=== PATIENT | female | born 1995 | race Caucasian/White ===

== ENCOUNTER 2017-04-02 19:59 | Emergency (ER) | payer SELFPAY ==
[2017-04-02] MEDS ORDERED: ONDANSETRON HCL IV 4 MG/2 ML VIAL IV ONE (20:21)
[2017-04-02] MEDS ORDERED: 0.9 % SODIUM CHLORIDE 1,000 ML BAG IV ONE ×2 (20:21→21:13)
[2017-04-02] MEDS ORDERED: ACETAMINOPHEN 325 MG TAB PO ONE (20:27)
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
[2017-04-02 20:53] LABS: BASO % 0.1 % (0-6); EOS % 0.1 % (0-6); HEMATOCRIT 40.3 % (35.0-47.0); HEMOGLOBIN 13.8 gm/dl (11.6-16.0); LYMPH % 3.8 % (16-45); MEAN CELL VOLUME 84.7 fl (81-97); MEAN CORPUSCULAR HGB CONC 34.2 g/dl (32-36); MEAN PLATELET VOLUME 10.7 fl (7.4-10.4); MONO % 5.2 % (0-9); PLATELET COUNT 322 K/uL (130-400); RED BLOOD COUNT 4.76 M/uL (3.80-5.40); RED CELL DISTRIBUTION WIDTH 12.6 % (11.5-14.5)
[2017-04-02 20:59] LABS: ALB/GLOB RATIO 1.4 (1.1-1.8); ALBUMIN 4.3 g/dL (4.0-5.0); ALKALINE PHOSPHATASE 68 U/L (35-104); ALT/SGPT 15 U/L (<33); AST/SGOT 17 U/L (10.0-35.0); BLOOD UREA NITROGEN 13.3 mg/dL (12.6-42.6); CREATININE 0.7 mg/dL (0.5-0.9); EST GLOMERULAR FILTRATION RATE > 60 mL/min; GLUCOSE,RANDOM 109 mg/dL (74-109); LIPASE 14 U/L (13-60); TOTAL PROTEIN 7.3 g/dL (6.6-8.7)
[2017-04-02 21:16] LABS: URINE APPEARANCE CLEAR; URINE BILIRUBIN NEGATIVE (NEGATIVE); URINE BLOOD LARGE (NEGATIVE); URINE COLOR YELLOW; URINE GLUCOSE (UA) NEGATIVE (NEGATIVE); URINE KETONE TRACE (NEGATIVE); URINE LEUKOCYTE ESTERASE TRACE (NEGATIVE); URINE NITRITE NEGATIVE (NEGATIVE); URINE PROTEIN NEGATIVE (NEGATIVE)
[2017-04-02 21:20] LABS: HCG,QUALITATIVE URINE NEGATIVE (NEGATIVE)
[2017-04-02 21:28] LABS: URINE BACTERIA 2+; URINE RBC 21 - 35 (NONE SEEN)
[2017-04-02] MEDS ORDERED: KETOROLAC 30 MG/ML VIAL IVP ONE (21:37)
[2017-04-02] MEDS ORDERED: CIPROFLOXACIN HCL 500 MG TABLET PO ONE (21:56)
== END 2017-04-02 22:17 | disposition home or self-care (01) ==
LOC: ER 19:59
DX: K52.9 Noninfective gastroenteritis and colitis, unspecified (principal); R11.2 Nausea with vomiting, unspecified; R53.1 Weakness; R10.9 Unspecified abdominal pain; R51 Headache
CPT/HCPCS: 99284 ×2; 96374; 96375; 96361; 83690; 80053; 81001; 81025; 85027; J1885; J2405; J7030

== ENCOUNTER 2017-04-08 15:55 | Emergency (ER) | payer SELFPAY ==
[2017-04-08] MEDS ORDERED: ONDANSETRON HCL IV 4 MG/2 ML VIAL IV ONE (16:08)
[2017-04-08] MEDS ORDERED: 0.9 % SODIUM CHLORIDE 1,000 ML BAG IV ONE ×2 (16:08→16:40)
--- NOTE | 2017-04-08 16:14 | Emergency Department Record ---
History of Present Illness - General Chief complaint: Nausea, Vomiting, Diarrhea Stated complaint: VOMITTING,NAUSEA,ELEVATED TEMP Time Seen by Provider: 04/08/17 16:07 Source: Patient Mode of Arrival: Ambulatory Limitations: No limitations - History of Present Illness Initial comments: 21 yo female presents with nausea and vomiting since this morning. The onset was about 11am. No fevers or chills. No diarrhea. She has some cramps with vomiting but then the discomfort resolves. NO history of abdominal surgery. No dysuria. No cough, chest pain, abdominal pain, back pain. She reports she is normally very healthy. She has been having nausea for about a month since starting control. The vomiting first occurred in the last one week. She was seen in the ED at that time with similar symptoms. She is concerned that the month of nausea is related to her control pills. MD complaint: Nausea, Vomiting Onset/Timin -: Hour(s) Description of Vomiting: Bilious Associated Abdominal Pain: Yes Location: Diffuse Radiation: None Severity: Mild Severity scale (1-10): 3 Quality: Cramping Consistency: Intermittent Improves with: None Worsens with: None Associated Symptoms: Nausea/vomiting - Related Data Previous Rx's Medication Instructions Recorded Ciprofloxacin HCl [Cipro] 500 mg PO Q12HR #10 tablet 04/02/17 Ondansetron [Zofran Odt] 4 mg SL .Q4-6H PRN #12 tab.rapdis 04/02/17 Promethazine HCl [Phenergan] 25 mg PO Q8H #15 tablet 04/08/17 Allergies Allergy/AdvReac Type Severity Reaction Status Date / Time codeine Allergy Intermediate VOMITING Verified 04/08/17 16:05 Travel Screening - Travel/Exposure Within Last 30 Days Have you traveled within the last 30 days?: No Review of Systems Constitutional: Denies: Chills, Fever, Weakness Eyes: Denies: Eye discharge, Eye pain, Photophobia ENT: Denies: Congestion, Throat pain Respiratory: Denies: Cough, Dyspnea, Hemoptysis, Stridor, Wheezes Cardiovascular: Denies: Chest pain, Palpitations, Syncope Endocrine: Denies: Fatigue Gastrointestinal: Reports: As per HPI, Nausea, Vomiting. Denies: Abdominal pain , Diarrhea Genitourinary: Denies: Dyspareunia, Dysuria, Urgency Musculoskeletal: Denies: Arthralgia, Back pain, Myalgia, Neck pain Skin: Denies: Bruising, Change in color, Rash Neurological: Denies: Abnormal gait, Headache, Numbness, Paresthesias, Tingling , Vertigo, Weakness Psychiatric: Denies: Anxiety Hematological/Lymphatic: Denies: Blood Clots, Easy bleeding, Easy bruising, Swollen glands Past Medical History - SOCIAL HISTORY Smoking Status: Never smoker Alcohol Use: None Drug Use: None - RESPIRATORY Hx Respiratory Disorders: No - CARDIOVASCULAR Hx Cardio Disorders: No - NEURO Hx Neuro Disorders: No - GI Hx GI Disorders: No - Hx Genitourinary Disorders: No - ENDOCRINE Hx Endocrine Disorders: No - MUSCULOSKELETAL Hx Musculoskeletal Disorders: No - PSYCH Hx Psych Problems: No - HEMATOLOGY/ONCOLOGY Hx Hematology/Oncology Disorders: No Family Medical History Any Significant Family History?: Yes Family Hx Comment (NOT TO BE USED IN PLACE OF ITEMS BELOW): Mother-hypoglycemic , anemic Physical Exam - General General Appearance: Alert, Oriented x3, Cooperative, No acute distress Limitations: No limitations - Head Head exam: Normal inspection - Eye Eye exam: Normal appearance. negative: Conjunctival injection, Periorbital swelling, Scleral icterus - ENT ENT exam: Normal exam, Mucous membranes moist Ear exam: Normal external inspection Nasal Exam: Normal inspection Mouth exam: Normal external inspection - Neck Neck exam: Normal inspection, Full ROM. negative: Lymphadenopathy - Respiratory Respiratory exam: Normal lung sounds bilaterally. negative: Respiratory distress - Cardiovascular Cardiovascular Exam: Regular rate, Normal rhythm, Normal heart sounds Peripheral Pulses: 2+: Radial (R), Radial (L) - GI/Abdominal GI/Abdominal exam: Soft. negative: Distended, Guarding, Hernia, Rebound, Rigid , Tenderness - Rectal Rectal exam: Deferred - exam: Deferred - Extremities Extremities exam: Normal inspection, Full ROM, Normal capillary refill. negative: Tenderness - Back Back exam: Reports: Normal inspection - Neurological Neurological exam: Alert, Normal gait, Oriented X3 - Psychiatric Psychiatric exam: Normal affect, Normal mood. negative: Agitated, Anxious - Skin Skin exam: Dry, Intact, Normal color, Warm Course Vital Signs 04/08/17 16:01 Temperature 97.8 F Pulse Rate 97 H Respiratory 18 Rate Blood Pressure 121/95 Pulse Ox 97 - Reevaluation(s) Reevaluation #1: The labs were reviewed CBC with WBC of 17 04/08/17 16:39 No acute changes of the CMP or Lipase 04/08/17 16:39 The patient is starting to feel better The second liter is starting. 04/08/17 17:21 No nausea or pain. 04/08/17 17:32 04/08/17 18:24 On recheck the nausea is well controlled The abdomen on examination is very soft, non tender to palpation and very soft to deep palpation The EMR was reviewed from the prior visit The urine culture was negative for any growth. 04/08/17 18:42 I recommend abdominal US as well given her recurrent symptoms There is an opening at 7am She is to be NPO after midnight and return for a recheck and US Medical Decision Making - Lab Data Result diagrams: 04/08/17 16:10 04/08/17 16:10 Disposition Disposition: Discharge Clinical Impression: Nausea and vomiting Qualifiers: Vomiting type: unspecified Vomiting Intractability: non-intractable Qualified Code(s): R11.2 - Nausea with vomiting, unspecified Disposition: Home, Self-Care Condition: (1) Good Instructions: Acute Nausea and Vomiting (ED) Additional Instructions: Call the family practice clinic to be seen in follow up Return if fever, return of nausea or vomiting or any other new concerns Return at 7am for an US of the abdomen Do not eat or drink after midnight. Prescriptions: Promethazine HCl [Phenergan] 25 mg PO Q8H #15 tablet Forms: Patient Portal Access Time of Disposition: 18:41 Quality - Quality Measures Quality Measures: N/A - Blood Pressure Screening Does Patient Have Any of the Following: No Blood Pressure Classification: Hypertensive Reading Systolic Measurement: 121 Diastolic Measurement: 95 Screening for High Blood Pressure: < Pre-Hypertensive BP, F/U Documented > [ G8950] Pre-Hypertensive Follow-up Interventions: Referral to alternative/primary care provider.
[2017-04-08 16:18] LABS: HEMATOCRIT 42.1 % (35.0-47.0); HEMOGLOBIN 14.3 gm/dl (11.6-16.0); MEAN CELL VOLUME 84.7 fl (81-97); MEAN CORPUSCULAR HEMOGLOBIN 28.8 pg (27-33); MEAN PLATELET VOLUME 9.8 fl (7.4-10.4); PLATELET COUNT 451 K/uL (130-400); RED BLOOD COUNT 4.97 M/uL (3.80-5.40); RED CELL DISTRIBUTION WIDTH 12.7 % (11.5-14.5); WHITE BLOOD COUNT W/O DIFF 17.5 K/uL (4.2-12.2)
[2017-04-08 16:29] LABS: PLATELET ESTIMATE NORMAL (NORMAL)
[2017-04-08 16:34] LABS: ALB/GLOB RATIO 1.3 (1.1-1.8); ALBUMIN 4.2 g/dL (4.0-5.0); ALKALINE PHOSPHATASE 87 U/L (35-104); ALT/SGPT 18 U/L (<33); AST/SGOT 14 U/L (10.0-35.0); BLOOD UREA NITROGEN 27.8 mg/dL (12.6-42.6); CREATININE 0.7 mg/dL (0.5-0.9); EST GLOMERULAR FILTRATION RATE > 60 mL/min; GLUCOSE,RANDOM 110 mg/dL (74-109); LIPASE 12 U/L (13-60); TOTAL PROTEIN 7.5 g/dL (6.6-8.7)
[2017-04-08 17:43] LABS: URINE APPEARANCE CLEAR; URINE BILIRUBIN NEGATIVE (NEGATIVE); URINE BLOOD TRACE-I (NEGATIVE); URINE COLOR YELLOW; URINE GLUCOSE (UA) NEGATIVE (NEGATIVE); URINE KETONE NEGATIVE (NEGATIVE); URINE LEUKOCYTE ESTERASE NEGATIVE (NEGATIVE); URINE NITRITE NEGATIVE (NEGATIVE); URINE PROTEIN NEGATIVE (NEGATIVE); URINE UROBILINOGEN 0.2 E.U./dL (0.20 - 1.00)
[2017-04-08 17:49] LABS: HCG,QUALITATIVE URINE NEGATIVE (NEGATIVE); URINE WBC NONE SEEN (0-2/hpf)
== END 2017-04-08 19:05 | disposition home or self-care (01) ==
LOC: ER 15:55
DX: R11.2 Nausea with vomiting, unspecified (principal); R19.7 Diarrhea, unspecified
CPT/HCPCS: 99284 ×2; 96374; 96361; 83690; 80053; 81001; 81025; 85027; J2405; J7030

== ENCOUNTER 2017-04-09 07:09 | Emergency (ER) | payer SELFPAY ==
[2017-04-09] MEDS ORDERED: 0.9 % SODIUM CHLORIDE 1,000 ML BAG IV ONE (07:18)
[2017-04-09 07:36] LABS: HEMATOCRIT 37.5 % (35.0-47.0); HEMOGLOBIN 12.6 gm/dl (11.6-16.0); MEAN CORPUSCULAR HEMOGLOBIN 28.9 pg (27-33); MEAN CORPUSCULAR HGB CONC 33.6 g/dl (32-36); MEAN PLATELET VOLUME 9.7 fl (7.4-10.4); PLATELET COUNT 414 K/uL (130-400); RED BLOOD COUNT 4.36 M/uL (3.80-5.40); RED CELL DISTRIBUTION WIDTH 12.6 % (11.5-14.5); WHITE BLOOD COUNT W/O DIFF 19.2 K/uL (4.2-12.2)
--- NOTE | 2017-04-09 07:52 | Emergency Department Record ---
History of Present Illness - General Chief Complaint: Recheck - Other Stated Complaint: here for ultrasound Time Seen by Provider: 04/09/17 07:18 Source: Patient, RN notes reviewed - History of Present Illness Initial Comments: patient seen twice in our ED and initial thought to be viral pharyngitis and than yesterday afternoon she was vomiting excessively and ED physician concerned about her GB and wanted her to return for and abd US. Patient states no vomiting since yesterday. Patient here with her mom. No abdominal pain on palpation. No diarrhea. No dysuria. Patient had a negative preg test on 2016 and 04/08/2017. WBC elevated last two visits in ED. urine culture neg. Patient is feeling better today and is hungry and she has an appointment with Dr Ronquillo today at 11 am and that is to discuss the control pills. Patient took 4 days of cipro but that made her nauseated and she stopped on Friday. urine culture neg for UTI Onset/Timin -: Week(s) Initial Visit For: Other Returns Today for: Other Symptoms Since Prior Visit: No new symptoms Associated Symptoms: Nausea Treatments Prior to Arrival: Other medications - Related Data Previous Rx's Medication Instructions Recorded Ciprofloxacin HCl [Cipro] 500 mg PO Q12HR #10 tablet 04/02/17 Ondansetron [Zofran Odt] 4 mg SL .Q4-6H PRN #12 tab.rapdis 04/02/17 Promethazine HCl [Phenergan] 25 mg PO Q8H #15 tablet 04/08/17 Allergies Allergy/AdvReac Type Severity Reaction Status Date / Time codeine Allergy Intermediate VOMITING Verified 04/09/17 07:16 Travel Screening - Travel/Exposure Within Last 30 Days Have you traveled within the last 30 days?: No - Travel/Exposure Within Last Year Have you traveled outside the [place] in the last year?: No - Additonal Travel Details Have you been exposed to anyone with a communicable illness?: No - Travel Symptoms Symptom Screening: None Review of Systems Reviewed: No additional complaints except as noted below Constitutional: Reports: As per HPI. Denies: Chills, Fever, Malaise, Night sweats, Weakness, Weight change Eyes: Reports: As per HPI. Denies: Eye discharge, Eye pain, Photophobia, Vision change ENT: Reports: As per HPI. Denies: Congestion, Dental pain, Ear pain, Epistaxis , Hearing loss, Throat pain Respiratory: Reports: As per HPI. Denies: Cough, Dyspnea, Hemoptysis, Stridor, Wheezes Cardiovascular: Reports: As per HPI. Denies: Arrhythmia, Chest pain, Dyspnea on exertion, Edema, Murmurs, Orthopnea, Palpitations, Paroxysmal nocturnal dyspnea, Rheumatic Fever, Syncope Endocrine: Reports: As per HPI. Denies: Fatigue, Heat or cold intolerance, Polydipsia, Polyuria Gastrointestinal: Reports: As per HPI. Denies: Abdominal pain, Constipation, Diarrhea, Hematemesis, Hematochezia, Melena, Nausea, Vomiting Genitourinary: Reports: As per HPI. Denies: Abnormal menses, Discharge, Dyspareunia, Dysuria, Frequency, Hematuria, Incontinence, Retention, Urgency Musculoskeletal: Reports: As per HPI. Denies: Arthralgia, Back pain, Gout, Joint swelling, Myalgia, Neck pain Skin: Reports: As per HPI. Denies: Bruising, Change in color, Change in hair/ nails, Lesions, Pruritus, Rash Neurological: Reports: As per HPI. Denies: Abnormal gait, Confusion, Headache, Numbness, Paresthesias, Seizure, Tingling, Tremors, Vertigo, Weakness Psychiatric: Reports: As per HPI. Denies: Anxiety, Auditory hallucinations, Depression, Homicidal thoughts, Suicidal thoughts, Visual hallucinations Hematological/Lymphatic: Reports: As per HPI. Denies: Anemia, Blood Clots, Easy bleeding, Easy bruising, Swollen glands Past Medical History - SOCIAL HISTORY Smoking Status: Never smoker Alcohol Use: None Drug Use Detail:: Marijuana - RESPIRATORY Hx Respiratory Disorders: No - CARDIOVASCULAR Hx Cardio Disorders: No - NEURO Hx Neuro Disorders: No - GI Hx GI Disorders: No - Hx Genitourinary Disorders: No - ENDOCRINE Hx Endocrine Disorders: No - MUSCULOSKELETAL Hx Musculoskeletal Disorders: No - PSYCH Hx Psych Problems: No - HEMATOLOGY/ONCOLOGY Hx Hematology/Oncology Disorders: No Family Medical History Any Significant Family History?: Yes Family Hx Comment (NOT TO BE USED IN PLACE OF ITEMS BELOW): Mother-hypoglycemic , anemic Physical Exam - General General Appearance: Alert, Oriented x3, Cooperative, No acute distress - Head Head exam: Normal inspection - Eye Eye exam: Normal appearance, PERRL Pupils: Normal accommodation - ENT ENT exam: Normal exam, Mucous membranes moist, Normal external ear exam, Normal orophraynx, TM's normal bilaterally Ear exam: Normal external inspection. negative: External canal tenderness Nasal Exam: Normal inspection. negative: Discharge, Sinus tenderness Mouth exam: Normal external inspection, Tongue normal Teeth exam: Normal inspection. negative: Dental caries Throat exam: Normal inspection. negative: Tonsillar erythema, Tonsillar exudate - Neck Neck exam: Normal inspection, Full ROM. negative: Tenderness - Respiratory Respiratory exam: Normal lung sounds bilaterally. negative: Respiratory distress - Cardiovascular Cardiovascular Exam: Regular rate, Normal rhythm, Normal heart sounds - GI/Abdominal GI/Abdominal exam: Soft, Normal bowel sounds. negative: Tenderness - Rectal Rectal exam: Deferred - exam: Deferred - Extremities Extremities exam: Normal inspection, Full ROM, Normal capillary refill. negative: Tenderness - Back Back exam: Reports: Normal inspection, Full ROM. Denies: Muscle spasm, Rash noted, Tenderness - Neurological Neurological exam: Alert, Normal gait, Oriented X3, Reflexes normal - Psychiatric Psychiatric exam: Normal affect, Normal mood - Skin Skin exam: Dry, Intact, Normal color, Warm Course Vital Signs 04/09/17 07:17 Temperature 98.4 F Pulse Rate 89 Respiratory 18 Rate Blood Pressure 122/77 Pulse Ox 98 Medical Decision Making - Data Complexity MDM Data: Labs Ordered and/or Reviewed (WBC 19,200 otherwise labs neg, urine culture neg for UTI), X-Ray Ordered and/or Reviewed (US negative) - Lab Data Result diagrams: 04/09/17 07:23 04/09/17 07:23 Lab Results 04/09/17 Range/Units 07:23 WBC 19.2 H (4.2-12.2) K/uL RBC 4.36 (3.80-5.40) M/uL Hgb 12.6 (11.6-16.0) gm/dl Hct 37.5 (35.0-47.0) % MCV 86.0 (81-97) fl MCH 28.9 (27-33) pg MCHC 33.6 (32-36) g/dl RDW 12.6 (11.5-14.5) % Plt Count 414 H (130-400) K/uL MPV 9.7 (7.4-10.4) fl Eosinophils % Not Reportable Basophils % Not Reportable Disposition Clinical Impression: Vomiting Qualifiers: Vomiting type: unspecified Vomiting Intractability: non-intractable Nausea presence: with nausea Qualified Code(s): R11.2 - Nausea with vomiting, unspecified Abdominal pain Qualifiers: Abdominal location: upper abdomen, unspecified Qualified Code(s): R10.10 - Upper abdominal pain, unspecified Disposition: Home, Self-Care Condition: (1) Good Instructions: Gastroenteritis (ED) Additional Instructions: follow up with Dr Ronquillo today as scheduled. gradually increase diet Have WBC checked in one week to make sure it normalizes Forms: Patient Portal Access Time of Disposition: 08:47 Quality - Quality Measures Quality Measures: N/A - Blood Pressure Screening Does Patient Have Any of the Following: No Blood Pressure Classification: Pre-Hypertensive BP Reading Systolic Measurement: 122 Diastolic Measurement: 77 Screening for High Blood Pressure: < Pre-Hypertensive BP, F/U Documented > [ G8950] Pre-Hypertensive Follow-up Interventions: Referral to alternative/primary care provider.
[2017-04-09 08:04] LABS: ALBUMIN 3.6 g/dL (4.0-5.0); ALKALINE PHOSPHATASE 77 U/L (35-104); ALT/SGPT 10 U/L (<33); AST/SGOT 12 U/L (10.0-35.0); BILIRUBIN,DIRECT 0.2 mg/dL (0-0.3); CREATININE 0.6 mg/dL (0.5-0.9); EST GLOMERULAR FILTRATION RATE > 60 mL/min; GLUCOSE,RANDOM 94 mg/dL (74-109); LIPASE 11 U/L (13-60); TOTAL PROTEIN 6.5 g/dL (6.6-8.7)
--- NOTE | 2017-04-09 13:53 | ULTRASOUND REPORT ---
EXAM: ULTRASOUND OF THE ABDOMEN HISTORY: VOMITING. TECHNIQUE: Sonographic evaluation of the abdomen was performed using curran scale imaging. FINDINGS: The liver appears homogeneous. No gallstones or ductal dilatation. The common bile duct measures 0.15 cm. The pancreas and spleen appear normal. The kidneys are normal in size with no hydronephrosis or nephrolithiasis. The abdominal aorta and inferior vena cava are patent. IMPRESSION: UNREMARKABLE ABDOMINAL SONOGRAM. JOB NUMBER: [id number] MTDD
== END 2017-04-09 09:11 | disposition home or self-care (01) ==
LOC: ER 07:09
DX: R11.2 Nausea with vomiting, unspecified (principal); R10.10 Upper abdominal pain, unspecified
CPT/HCPCS: 76700; 80048; 80076; 83690; 85027; 96360; 99284; J7030

== ENCOUNTER 2017-12-28 01:24 | Emergency (ER) | payer MEDICAID ==
[2017-12-28] MEDS ORDERED: CEFTRIAXONE 250 MG VIAL IM ONE (02:33)
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
== END 2017-12-28 02:58 | disposition home or self-care (01) ==
LOC: ER 01:24
DX: N75.1 Abscess of Bartholin's gland (principal)
CPT/HCPCS: 56420 ×2; 99284 ×2; 96372; 84703; J0696

== ENCOUNTER 2019-02-12 11:49 | Emergency (ER) | payer MEDICAID ==
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
[2019-02-12] MEDS ORDERED: ONDANSETRON HCL IV 4 MG/2 ML VIAL IV ONE (13:02)
[2019-02-12] MEDS ORDERED: 0.9 % SODIUM CHLORIDE 1,000 ML BAG IV ONE (13:02)
[2019-02-12 13:29] LABS: HEMATOCRIT 41.2 % (35.0-47.0); HEMOGLOBIN 13.7 gm/dl (11.6-16.0); MEAN CELL VOLUME 85.1 fl (81-97); MEAN CORPUSCULAR HEMOGLOBIN 28.3 pg (27-33); MEAN CORPUSCULAR HGB CONC 33.3 g/dl (32-36); MEAN PLATELET VOLUME 9.7 fl (7.4-10.4); PLATELET COUNT 420 K/uL (130-400); RED BLOOD COUNT 4.84 M/uL (3.80-5.40); RED CELL DISTRIBUTION WIDTH 13.3 % (11.5-14.5); WHITE BLOOD COUNT W/O DIFF 11.2 K/uL (4.2-12.2)
[2019-02-12] MEDS ORDERED: 0.9 % SODIUM CHLORIDE 1000ML 1,000 ML IV SCH (13:30)
[2019-02-12 13:31] LABS: URINE APPEARANCE CLEAR; URINE BILIRUBIN SMALL (NEGATIVE); URINE BLOOD NEGATIVE (NEGATIVE); URINE COLOR YELLOW; URINE GLUCOSE (UA) NEGATIVE (NEGATIVE); URINE LEUKOCYTE ESTERASE NEGATIVE (NEGATIVE); URINE NITRITE NEGATIVE (NEGATIVE); URINE UROBILINOGEN 0.2 E.U./dL (0.20 - 1.00)
[2019-02-12 13:36] LABS: URINE KETONE 80 mg/dL (NEGATIVE)
[2019-02-12 13:39] LABS: BLOOD UREA NITROGEN 10 mg/dL (6-20); CREATININE 0.5 mg/dL (0.5-0.9); EST GLOMERULAR FILTRATION RATE > 60 mL/min; HCG,QUALITATIVE URINE POSITIVE (NEGATIVE)
[2019-02-12 13:40] LABS: AMPHETAMINE SCREEN URINE NOT DETECTED; BARBITURATE SCREEN URINE NOT DETECTED; BENZODIAZEPINE SCREEN URINE NOT DETECTED; COCAINE SCREEN URINE NOT DETECTED; METHADONE SCREEN URINE NOT DETECTED; METHAMPHETAMINE SCREEN NOT DETECTED; OPIATE SCREEN URINE NOT DETECTED; OXYCODONE SCREEN URINE NOT DETECTED; PHENCYCLIDINE SCREEN URINE NOT DETECTED; PROPOXYPHENE SCREEN URINE NOT DETECTED; THC SCREEN URINE DETECTED; TRICYCLIC ANTIDEPRESSANT SCRN NOT DETECTED
[2019-02-12 13:42] LABS: GLUCOSE,RANDOM 91 mg/dL (74-109)
[2019-02-12 13:51] LABS: URINE BACTERIA FEW; URINE MUCUS MODERATE
[2019-02-12 14:35] LABS: ABSOLUTE NEUTROPHIL COUNT 8.82
--- NOTE | 2019-02-13 22:12 | ULTRASOUND REPORT ---
EXAM: ULTRASOUND OB PELV W TV - EARLY (4-13wks) HISTORY: FIRST TRIMESTER , NAUSEA AND VOMITING WITH DIARRHEA FOR 1.5 DAYS. TECHNIQUE: Real-time ultrasound examination of the pelvis performed utilizing transabdominal and transvaginal technique. Doppler ultrasound performed with color-flow and spectral analysis. COMPARISON: No prior OB ultrasound with which to compare. FINDINGS: TRANSABDOMINAL PELVIC IMAGES: The uterus is identified measuring about 5.1 cm in AP, by 6.1 cm in transverse diameters and 8.2 cm in length. Within the uterine fundus is seen a small intrauterine fluid collection consistent with an early intrauterine gestational sac. Left ovary relatively poorly seen in the transabdominal approach due to overlying bowel content. Right ovary identified measuring 4.2 cm in size with arterial flow evident with color-flow and spectral analysis Doppler. No right adnexal mass evident. The small intrauterine gestational sac has a mean sac diameter of 1.03 cm and corresponding to an estimated gestational age of 5 week, 0 day. No definite pole or yolk sac identified within the gestational sac on the transabdominal approach. No maternal free fluid evident. TRANSVAGINAL OB IMAGES: In an effort to better visualize the early intrauterine gestational sac, transvaginal study was performed. The intrauterine gestational sac is better seen transvaginally. Adjacent to the sac, there is a small irregular hypoechoic collection within the uterus measuring about 0.8 x 1.0 x 1.7 cm, likely representing a small subchorionic hemorrhage. Within the intrauterine gestational sac, a well-defined yolk sac is identified. The mean sac diameter of 1.09 cm corresponds to an estimated gestational age of 5 week, 1 day. In addition, a tiny pole is identified within the gestational sac measuring 4.2 mm in size corresponding to an estimated gestational age of 6 week, 1 day. The heartbeat could not confidently be identified, however, as yet. Because of the very early nature of the , amniotic fluid, placenta location, and anatomy cannot be adequately evaluated. Maternal right ovary identified measuring about 3.8 cm in size and demonstrating arterial and venous flow with color-flow and spectral analysis Doppler. There is a 2 cm complex mass within the right ovary, which is nonspecific although presumably a hemorrhagic corpus luteum cyst. Left ovary identified transvaginally measuring about 2.7 cm in size and also demonstrating arterial and venous flow with color-flow and spectral analysis Doppler. Tiny follicles seen within the left ovary. No free fluid evident. IMPRESSION: 1. SINGLE INTRAUTERINE WITH A COMPOSITE ESTIMATED GESTATIONAL AGE OF 5 WEEK, 5 DAY, WHICH GIVES AN ESTIMATED DATE OF DELIVERY OF 10/10/19. YOLK SAC IDENTIFIED BUT HEARTBEAT NOT DETECTED YET. THIS MAY JUST BE DUE TO THE VERY SMALL SIZE OF THE POLE CURRENTLY BUT, IF THERE IS ANY CLINICAL CONCERN FOR VIABILITY, FOLLOW-UP TRANSVAGINAL OB ULTRASOUND IN 1-2 WEEKS TIME WOULD BE SUGGESTED TO CONFIRM VIABILITY. 2. THERE IS PROBABLY A SMALL SUBCHORIONIC HEMORRHAGE ADJACENT TO THE INTRAUTERINE GESTATIONAL SAC. 3. PROBABLE 2 CM CORPUS LUTEUM CYST RIGHT OVARY. JOB NUMBER: [id number] MTDD
== END 2019-02-12 16:45 | disposition home or self-care (01) ==
LOC: ER 11:49
DX: O21.0 Mild hyperemesis gravidarum (principal); Z3A.01 Less than 8 weeks gestation of pregnancy
CPT/HCPCS: 99284 ×2; 96374; 84702; 80048; 81001; 81025; 80305; 85027; 86901; 76817; 76801; J2405; J7030